=== PATIENT | female | born 1960 | race African-American/Black ===

== ENCOUNTER 2020-12-27 07:39 | Emergency (ER) | payer OTHER ==
[~2020-12-27] VITALS: Ht 167.6 cm; Wt 75.9 kg
[2020-12-27] MEDS ORDERED: hydrOXYzine 25 MG TABLET PO STA (07:55)
[2020-12-27] MEDS ORDERED: LIDOCAINE 1%/EPI 1:100,000 20 ML VIAL. ONE (07:56)
[2020-12-27] MEDS ORDERED: IV NORMAL SALINE 1000ML BAG 1,000 ML IV ONE (08:00)
--- NOTE | 2020-12-27 08:18 | PHYS DOC ---
Past Medical History Past Medical History: No Pertinent History Past Surgical History: No Surgical History Smoking Status: Never Smoker Alcohol Use: None General Adult EDM: Chief Complaint: MECHANICAL FALL HPI: HPI: 60-year-old female presents the emergency department after a syncopal episode earlier today when she was at home. She reports that she has not been eating or drinking normally secondary to anxiety over stress at home. When asked about stress, she states that she does not talk or answer about it. She denies any suicidal intent, homicidal intents or hallucinations. She reports not eating and drinking normally and attributes this to her syncopal episode. She denies any preceding chest pain shortness of breath or any further symptoms prior to the syncopal episode. She reports feeling in her normal state after she awoke and she did not lose consciousness. She reports hitting her head and suffering a laceration above her left eye. She has no change in vision or any eye pain. She is not on any blood thinning medications does not take any home medications. The patient denies nausea, vomiting, fever, chills, chest pain, shortness of breath, abdominal pain, urinary symptoms, cough,or any other complaints. Review of Systems: Review of Systems: Constitutional: Negative except what was mentioned in HPI. Eyes: Negative except what was mentioned in HPI. HENT: Negative except what was mentioned in HPI. Respiratory: Negative except what was mentioned in HPI. Cardiovascular: Negative except what was mentioned in HPI. GI: Negative except what was mentioned in HPI. : Negative except what was mentioned in HPI. Musculoskeletal: Negative except what was mentioned in HPI. Integument: Negative except what was mentioned in HPI. Neurologic: Negative except what was mentioned in HPI. Endocrine: Negative except what was mentioned in HPI. Lymphatic: Negative except what was mentioned in HPI. Psychiatric: Negative except what was mentioned in HPI. Heart Score: C/O Chest Pain: No Family History: Family History: Noncontributory Current Medications: Current Medications Medications (Trade) Dose Ordered Sig/Alan Start Time Stop Time Status Last Admin Dose Admin Hydroxyzine HCl (Atarax) 25 mg 1X STAT 12/27/20 07:55 12/27/20 07:59 DC Lidocaine/ Epinephrine (LIDOCAINE 1%-EPI 1:100,000 Multi-Dose) 20 ml STK-MED ONCE 12/27/20 07:56 12/27/20 07:56 DC Sodium Chloride 1,000 ml @ 1,000 mls/hr 1X ONCE 12/27/20 08:00 12/27/20 08:59 Allergies: Allergies: Allergies Coded Allergies Type Severity Reaction Last Updated Verified No Known Drug Allergies 12/27/20 No Physical Exam: PE: Constitutional: No acute distress, non-toxic appearance. HENT: 1.5 cm complex stellate appearing laceration to the left eyebrow area, does not involve the lid or orbit. Wound is not deep to the gale[place]. Eyes: PERRLA, EOMI, conjunctiva normal, no discharge. Neck: Normal range of motion, supple, no stridor. Cardiovascular: Heart rate regular rhythm. 2+ radial pulses Lungs & Thorax: No respiratory distress, symmetrical expansion. Abdomen: Soft, no tenderness Skin: Warm, dry. Extremities: No tenderness, no cyanosis, ROM intact, no edema. Neurologic: Alert and oriented X 3, normal motor function, normal sensory function, no focal deficits noted. Non ataxic gait. GCS 15. Psychologic: Affect normal, judgment normal, mood normal. Nonsuicidal. Appears anxious and tearful Current Patient Data: Labs: Laboratory Tests Test 12/27/20 07:59 12/27/20 08:00 12/27/20 08:45 White Blood Count 4.6 x10^3/uL (4.0-11.0) Red Blood Count 4.85 x10^6/uL (3.50-5.40) Hemoglobin 14.4 g/dL (12.0-15.5) Hematocrit 42.5 % (36.0-47.0) Mean Corpuscular Volume 88 fL (79-100) Mean Corpuscular Hemoglobin 30 pg (25-35) Mean Corpuscular Hemoglobin Concent 34 g/dL (31-37) Red Cell Distribution Width 12.8 % (11.5-14.5) Platelet Count 205 x10^3/uL (140-400) Neutrophils (%) (Auto) 70 % (31-73) Lymphocytes (%) (Auto) 22 % (24-48) Monocytes (%) (Auto) 8 % (0-9) Eosinophils (%) (Auto) 0 % (0-3) Basophils (%) (Auto) 0 % (0-3) Neutrophils # (Auto) 3.3 x10^3/uL (1.8-7.7) Lymphocytes # (Auto) 1.0 x10^3/uL (1.0-4.8) Monocytes # (Auto) 0.4 x10^3/uL (0.0-1.1) Eosinophils # (Auto) 0.0 x10^3/uL (0.0-0.7) Basophils # (Auto) 0.0 x10^3/uL (0.0-0.2) Sodium Level 128 mmol/L (136-145) Potassium Level 3.7 mmol/L (3.5-5.1) Chloride Level 91 mmol/L (98-107) Carbon Dioxide Level 28 mmol/L (21-32) Anion Gap 9 (6-14) Blood Urea Nitrogen 12 mg/dL (7-20) Creatinine 1.0 mg/dL (0.6-1.0) Estimated GFR (Cockcroft-Gault) 68.2 Glucose Level 168 mg/dL (70-99) Calcium Level 8.2 mg/dL (8.5-10.1) Troponin I High Sensitivity 4 ng/L (4-50) TG-Oqj-D-Type Natriuretic Peptide 19 pg/mL (0-124) Glucose (Fingerstick) 153 mg/dL (70-99) Urine Collection Type Unknown Urine Color Yellow Urine Clarity Clear Urine pH 7.0 (<5.0-8.0) Urine Specific [place] 1.015 (1.000-1.030) Urine Protein 30 mg/dL (NEG-TRACE) Urine Glucose (UA) Negative mg/dL (NEG) Urine Ketones (Stick) Negative mg/dL (NEG) Urine Blood Negative (NEG) Urine Nitrite Negative (NEG) Urine Bilirubin Negative (NEG) Urine Urobilinogen Dipstick 1.0 mg/dL (0.2 mg/dL) Urine Leukocyte Esterase Moderate (NEG) Urine RBC Occ /HPF (0-2) Urine WBC 5-10 /HPF (0-4) Urine Squamous Epithelial Cells Mod /LPF Urine Bacteria Few /HPF (0-FEW) Vital Signs: Vital Signs Date Time Temp Pulse Resp B/P (MAP) Pulse Ox O2 Delivery O2 Flow Rate FiO2 12/27/20 07:42 97.9 85 17 128/71 (90) 94 Room Air 97.9 EKG: EKG: Time read: 0751 Normal sinus rhythm rate of 82, no ST-T wave changes, no ectopic beats, normal axis, normal OH, QRS, and QTc intervals. Impression: Normal EKG. interpreted by meBandar D.O. Radiology/Procedures: Radiology/Procedures: Laceration Repair Procedure Time: 0800 Confirmed: Patient, procedure, side, and site correct. Consent: Patient has given verbal consent. Description/ repair Laceration: Location: Left. 1.5 cm in length. Shape: Stellate. Depth: Superficial. Details: clean, no foreign material. Neurovascular/ tendon exam: intact. Anesthesia: 4 ml, 1% lidocaine, with epinephrine. Preparation: sterile field established. Irrigation: wound irrigated copiously with normal saline with pressure cap. Debridement: none. Skin closure: Simple interrupted technique. Suture: 5-0, Ethilon. Number of sutures: 4. Complexity: Single layer. Post procedure exam: Circulation, motor, sensory examination intact, Bleeding controlled. Complications: None. Patient tolerated: Well. Performed by: Bandar Sierra DO. EXAM: CT head and cervical spine without contrast INDICATION: Fall COMPARISON: None TECHNIQUE: Axial CT imaging through the head and cervical spine without intravenous contrast. Sagittal and coronal reformats of the cervical spine were obtained. One or more of the following individualized dose reduction techniques were utilized for this examination: 1. Automated exposure control 2. Adjustment of the mA and/or kV according to patient size 3. Use of iterative reconstruction technique. FINDINGS: CT head: The ventricles and sulci are normal. Fitzgerald-white matter differentiation is maintained. There is no intracranial hemorrhage, acute infarct, or mass lesion. Basal cisterns are clear. The skull and scalp are intact. Mild scattered mucosal thickening in the paranasal sinuses. Mastoid air cells are clear. Globes and orbits are intact. CT cervical spine: No acute fracture. There is straightening of lordosis. No listhesis. 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 Moderate disc space narrowing at C2-C3, C4-C5 and C6-C7. There is uncovertebral joint proliferation, greatest at C4-C5, C5-C6, C6-7 on the left where there is severe foraminal narrowing. There is milder foraminal narrowing at other levels. No significant facet arthrosis. Prevertebral soft tissues normal. Lung apices are clear. IMPRESSION: 1. No acute intracranial abnormality. 2. No acute osseous abnormality of the cervical spine. 3. Degenerative disc disease with foraminal narrowing at multiple levels. Electronically signed by: Flakita Herrera MD (12/27/2020 9:11 AM) XR CHEST 1V History: Syncope. Comparison: None. Technique: Portable AP radiograph of the chest. Findings: The lungs are adequately inflated. There are hazy left greater than right basilar opacities. Cardiomediastinal silhouettes within normal limits. Pulmonary vasculature is mildly indistinct. Osseous structures and soft tissues are unremarkable. Impression: 1. Left greater than right hazy basilar predominant opacities may represent multifocal infection or edema. Electronically signed by: Eric Chavez MD (12/27/2020 9:07 AM) Course & Med Decision Making: Course & Med Decision Making Patient feeling much better after interventions, laceration repaired appropriately, CT scan is negative, labs are reassuring. Patient will be discharged home in improved condition. She had no signs of a psychiatric emergency at this time and denied suicidal ideations. Family is present at the bedside. My Orders - BANDAR SIERRA DO Procedure Category Date Status Time Cbc W Autodiff LAB 12/27/20 Complete 07:55 Basic Metabolic Panel LAB 12/27/20 Complete 07:55 Troponin-I High LAB 12/27/20 Complete Sensitivity 07:55 Nt-Pro Bnp LAB 12/27/20 Complete 07:55 12 Lead Ekg EKG 12/27/20 Logged 07:55 Iv Normal Saline PHA 12/27/20 Complete 1000ml Bag (Iv Sodium 08:00 Hydroxyzine (Atarax) PHA 12/27/20 Complete 07:55 Ct Head [address] Cervical CT 12/27/20 Resulted Spine Wo 07:55 Chest Ap Only RAD 12/27/20 Resulted 07:55 Ua, Cult If Indicated LAB 12/27/20 Complete 08:18 Urine Culture VINCENT 12/27/20 In Process 09:11 Departure Departure Impression: Primary Impression: Laceration of left eyebrow without complication Additional Impression: CAP (community acquired pneumonia) Disposition: 01 HOME / SELF CARE / HOMELESS Condition: STABLE Referrals: NO PCP (PCP) Patient Instructions: Laceration Care, Adult, [id number] Additional Instructions: You were seen in the emergency department for a laceration, which was repaired with sutures. As with all lacerations, there is a chance that the laceration will leave a scar. You should wear sunscreen and/or vitamin E cream to help reduce scar formation over the wound. The laceration area may take weeks-months to heal completely and may not return to its full tensile strength. You may apply topical bacitracin or Neosporin over the wound if this helps soothe the area. It is OK to shower with the wound after your remove the dressing. Wounds can be gently cleansed with soap and water in the shower, but you should avoid soaking the wound or swimming, generally until after sutures are removed. Lacerations have a chance of infection, and you should return to the ER for a recheck if you have fever, warmth, redness, increased swelling, pus draining from the sutured wound, or any further concerns. Please go to your primary care physician, an urgent care, or return to the ED to have your sutures removed in 7-10 days. Scripts Azithromycin (AZITHROMYCIN TABLET) 250 Mg Tablet 1 PKG PO UD for 5 Days, #6 TAB 0 Refills 2 the first day followed by 1 for days 2-5 Prov: BANDAR SIERRA DO 12/27/20 BANDAR SIERRA DO Dec 27, 2020 08:18
[2020-12-27 08:23] LABS: CALCIUM 8.2 mg/dL (8.5-10.1); GFR 68.2; POTASSIUM 3.7 mmol/L (3.5-5.1)
[2020-12-27 08:24] LABS: BASO % 0 % (0-3); EOS % 0 % (0-3); HEMATOCRIT 42.5 % (36.0-47.0); HEMOGLOBIN 14.4 g/dL (12.0-15.5); LYMPH % 22 % (24-48); MEAN CORPUSCULAR HEMOGLOBIN 30 pg (25-35); MEAN CORPUSCULAR HGB CONC 34 g/dL (31-37); MEAN CORPUSCULAR VOLUME 88 fL (79-100); MONO # 0.4 x10^3/uL (0.0-1.1); MONO % 8 % (0-9); NEUT # 3.3 x10^3/uL (1.8-7.7); NEUT % 70 % (31-73); PLATELET COUNT 205 x10^3/uL (140-400); RED BLOOD COUNT 4.85 x10^6/uL (3.50-5.40); RED CELL DISTRIBUTION WIDTH 12.8 % (11.5-14.5); WHITE BLOOD COUNT 4.6 x10^3/uL (4.0-11.0)
[2020-12-27 08:55] LABS: BILIRUBIN,URINE NEGATIVE (NEG); CLARITY,URINE CLEAR; COLOR,URINE YELLOW; NITRITE,URINE NEGATIVE (NEG); PROTEIN,URINE 30 mg/dL (NEG-TRACE)
--- NOTE | 2020-12-27 09:09 | RAD ---
XR CHEST 1V History: Syncope. Comparison: None. Technique: Portable AP radiograph of the chest. Findings: The lungs are adequately inflated. There are hazy left greater than right basilar opacities. Cardiome diastinal silhouettes within normal limits. Pulmonary vasculature is mildly indistinct. Osseous struc tures and soft tissues are unremarkable. Impression: 1. Left greater than right hazy basilar predominant opacities may represent multifocal infection or edema. Electronically signed by: Eric Chavez MD (12/27/2020 9:07 AM) [id number]
[2020-12-27 09:11] LABS: BACTERIA,URINE FEW /HPF (0-FEW); RBC,URINE OCC /HPF (0-2)
--- NOTE | 2020-12-27 09:14 | RAD ---
EXAM: CT head and cervical spine without contrast INDICATION: Fall COMPARISON: None TECHNIQUE: Axial CT imaging through the head and cervical spine without intravenous contrast. Sagitta l and coronal reformats of the cervical spine were obtained. One or more of the following individualized dose reduction techniques were utilized for this examinat ion: 1. Automated exposure control 2. Adjustment of the mA and/or kV according to patient size 3. Use of iterative reconstruction technique. FINDINGS: CT head: The ventricles and sulci are normal. Fitzgerald-white matter differentiation is maintained. There is no in tracranial hemorrhage, acute infarct, or mass lesion. Basal cisterns are clear. The skull and scalp are intact. Mild scattered mucosal thickening in the paranasal sinuses. Mastoid a ir cells are clear. Globes and orbits are intact. CT cervical spine: No acute fracture. There is straightening of lordosis. No listhesis. 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 Moderate disc space narrowing at C2-C3, C4-C5 and C6-C7. There is uncovertebral joint prolif eration, greatest at C4-C5, C5-C6, C6-7 on the left where there is severe foraminal narrowing. There is milder foraminal narrowing at other levels. No significant facet arthrosis. Prevertebral soft tiss ues normal. Lung apices are clear. IMPRESSION: 1. No acute intracranial abnormality. 2. No acute osseous abnormality of the cervical spine. 3. Degenerative disc disease with foraminal narrowing at multiple levels. Electronically signed by: Flakita Herrera MD (12/27/2020 9:11 AM) [id number]
[2020-12-27] MEDS ORDERED: DIPH,PERTUSS(ACELL),TET VAC/PF 0.5 ML SYRINGE. VAX IM ONE (10:15)
[2020-12-27 10:22] VITALS: BP 136/72
[2020-12-27] MEDS ORDERED: AZIT250T6 PO (10:49)
--- NOTE | 2020-12-27 15:51 | EKG ---
[facility] [address] [place] [address] Test Date: 2020-12-27 Test Time: 07:50:29 Pat Name: ANDRADE FRIEDMAN Department: Room: Gender: F Gynecologist: : 1960 Requested By: AMEE WINSTON Order Number: [id number] Reading MD: Atif Brewster Measurements Intervals [place] Rate: 82 P: 51 [place]: 154 QRS: -38 QRSD: 80 T: 29 QT: 348 QTc: 409 Interpretive Statements SINUS RHYTHM ABNORMAL LEFT AXIS DEVIATION LEFT ANTERIOR FASCICULAR BLOCK MILD NON SPECIFIC ST CHANGES Electronically Signed On 12-31-2020 9:58:12 PANEL WIRER by Atif Brewster
== END 2020-12-27 10:43 | disposition home or self-care (01) ==
LOC: ER 07:59
DX: S01.112A Laceration without foreign body of left eyelid and periocular area, initial encounter (principal); J18.9 Pneumonia, unspecified organism; R55 Syncope and collapse; W18.39XA Other fall on same level, initial encounter; Y93.89 Activity, other specified; Y92.89 Other specified places as the place of occurrence of the external cause; Y99.8 Other external cause status
CPT/HCPCS: 12011; 36415; 70450; 71045; 72125; 80048; 81001; 82962; 83880; 84484; 85025; 87086; 90471; 90715; 93005; 96360; 99285; J7030